=== PATIENT | female | born 1995 | race Two or more races ===

== ENCOUNTER 2018-02-22 03:05 | Emergency (ER) | payer BC, OTHER ==
[2018-02-22] MEDS ORDERED: DEXAMETHASONE SOD PHOS INJ 10 MG/1 ML VIAL IM ONE (03:52)
--- NOTE | 2018-02-22 05:04 | RADIOLOGY REPORT (SQ) ---
Chest 2 view on 02/22/2018 at 4:41 AM CLINICAL INDICATION: Cough, fever COMPARISON: None FINDINGS: The lungs are clear. Cardiac, hilar and mediastinal contours are within normal limits. Pulmonary vascularity is within normal limits. No bony abnormality is noted. IMPRESSION: No active disease.
--- NOTE | 2018-02-22 05:32 | ER Document Report ---
HPI - HPI Patient complains to provider of: sore throat, cough Pain Level: 4 Context: Patient is a 22-year-old female that comes emergency department for chief complaint of sore throat, this started about 5 days ago, she states she was spiking fevers, she states she was seen by urgent care and started on, however she states that even though initially she felt better she has not improved, she has become hoarse, she has a cough, she has congestion, she feels worse. She states that she has multiple episodes of strep per year. Past medical history of asthma, she states she had wheezing which resolved with albuterol. - CONSTITUTIONAL Constitutional: DENIES: Fever, Chills - EENT EENT: REPORTS: Sore Throat. DENIES: Ear Pain, Eye problems - NEURO Neurology: DENIES: Headache, Weakness, Vision blurred, Dizzinesss / Vertigo - CARDIOVASCULAR Cardiovascular: DENIES: Chest pain - RESPIRATORY Respiratory: DENIES: Trouble Breathing, Coughing - GASTROINTESTINAL Gastrointestinal: DENIES: Abdominal Pain, Black / Bloody Stools - URINARY Urinary: DENIES: Dysuria, Urgency, Frequency - MUSCULOSKELETAL Musculoskeletal: DENIES: Extremity pain <JUAN RAMON NELSON - Last Filed: 02/22/18 05:33> - HPI Context: She was started on amoxicillin at the urgent care center. <XI DELONG - Last Filed: 02/22/18 05:43> Past Medical History - General Information source: Patient - Social History Smoking Status: Never Smoker Chew tobacco use (# tins/day): No Frequency of alcohol use: None Drug Abuse: None Lives with: Alone Family History: Reviewed & Not Pertinent Patient has suicidal ideation: No Patient has homicidal ideation: No Pulmonary Medical History: Reports: Hx Asthma Renal/ Medical History: Reports: Hx Ovarian Cysts - PCOS. Denies: Hx Peritoneal Dialysis Past Surgical History: Reports: Hx Oral Surgery - [place] teeth - Immunizations Hx Diphtheria, Pertussis, Tetanus Vaccination: Yes <JUAN RAMON NELSON - Last Filed: 02/22/18 05:33> Vertical Provider Document - CONSTITUTIONAL General Appearance: WD/WN, No Apparent Distress - INFECTION CONTROL TRAVEL OUTSIDE OF THE [place] IN LAST 30 DAYS: No - HEENT HEENT: Atraumatic, Normocephalic. negative: Normal ENT Exam - Tonsillitis with no hypertrophy of 1 more than the other, no rash or exudates, clear airway, normal uvula. Ear examination unremarkable. Some sinus congestion noted, nontender sinuses. - NECK Neck: negative: Normal Inspection - Mild bilateral anterior cervical adenopathy - RESPIRATORY Respiratory: Breath Sounds Normal, No Respiratory Distress. negative: Wheezing - CARDIOVASCULAR Cardiovascular: Regular Rate, Regular Rhythm - GI/ABDOMEN Gastrointestinal: Abdomen Soft, Abdomen Non-Tender. negative: No Organomegaly - BACK Back: Normal Inspection - NEURO Level of Consciousness: Awake, Alert, Appropriate - DERM Integumentary: Warm, Dry, No Rash <JUAN RAMON NELSON - Last Filed: 02/22/18 05:33> Course - Re-evaluation Re-evalutation: Patient has congested cough, some sinus congestion, she does have very large tonsils but no rash or unequal swelling suggesting peritonsillar abscess. She does have laryngitis but no hot potato voice or difficulty handling secretions. She has cervical adenopathy but no evidence of Erick's angina. Strep test had Ed been performed before I saw the patient, this is negative, culture pending. Chest x-ray does not show pneumonia. Discussed with patient. This is probably viral. She is already on amoxicillin. She did not get a rash, no splenomegaly on exam, lower suspicion of mono. Patient treated with dexamethasone, symptom management. Provided with work release. Discussed possibilities, workup, follow-up, return precautions. Patient states understanding and agreement. - Vital Signs Vital signs: Temp Pulse Resp BP Pulse Ox 98.4 F 68 16 135/77 H 98 02/22/18 03:11 02/22/18 03:11 02/22/18 03:11 02/22/18 03:11 02/22/18 03:11 <JUAN RAMON NELSON - Last Filed: 02/22/18 05:33> - Vital Signs Vital signs: Temp Pulse Resp BP Pulse Ox 98.1 F 66 15 116/78 97 02/22/18 05:39 02/22/18 05:39 02/22/18 05:39 02/22/18 05:39 02/22/18 05:39 <XI DELONG E - Last Filed: 02/22/18 05:43> Discharge <JUAN RAMON NELSON - Last Filed: 02/22/18 05:33> <XI DELONG E - Last Filed: 02/22/18 05:43> - Discharge Clinical Impression: Cough, Lymphadenopathy Pharyngitis Qualifiers: Pharyngitis/tonsillitis etiology: unspecified etiology Qualified Code(s): J02.9 - Acute pharyngitis, unspecified Condition: Stable Disposition: HOME, SELF-CARE Additional Instructions: Your strep test is negative. Your chest x-ray is negative. You most likely have a virus that has caused swelling of the tonsils, swelling of the lymph nodes, cough, congestion. Take the medication Tessalon for cough during the day , take the syrup if needed at night. You can take pxkl-jil-sbdmuvd medications such as cetirizine, Flonase, etc. Take ibuprofen for pain. You have been given dexamethasone today for your symptoms as well. Follow-up with primary care. Return if you worsen including difficulty breathing or swallowing, spiking fever, swelling of the neck, or any other concerning symptoms. Prescriptions: Hydrocodone Bit/Homatropine [Hycodan Syrup 5-1.5 mg/5 ml Ud Cup] 5 ml PO Q4HP PRN #120 ml PRN Reason: Benzonatate [Tessalon Perle 100 mg Capsule] 100 mg PO Q8HP PRN #20 cap PRN Reason: Forms: Return to Work
[2018-02-22 05:42] VITALS: BP 116/78
== END 2018-02-22 05:42 | disposition home or self-care (01) ==
LOC: ER 03:05
DX: J02.9 Acute pharyngitis, unspecified (principal); J04.0 Acute laryngitis; R05 Cough; J45.909 Unspecified asthma, uncomplicated; R59.0 Localized enlarged lymph nodes; R09.81 Nasal congestion
CPT/HCPCS: 99283; 96372; 87070; 87880; 71046; J1100

== ENCOUNTER 2019-05-04 13:44 | Outpatient (CLI) | payer BC, MEDICAID ==
[2019-05-04] MEDS ORDERED: RINGERS SOLUTION,LACTATED 1,000 ML IV PRN (13:51)
[2019-05-04 14:42] LABS: APPEARANCE,URINE CLOUDY; BILIRUBIN,URINE NEGATIVE (NEGATIVE); COLOR,URINE YELLOW; GLUCOSE, URINE NEGATIVE (NEGATIVE); KETONES,URINE NEGATIVE (NEGATIVE); LEUKOCYTE ESTERASE,URINE LARGE (NEGATIVE); NITRITE,URINE NEGATIVE (NEGATIVE); PROTEIN,URINE NEGATIVE (NEGATIVE); URINE SPECIFIC GRAVITY 1.016; UROBILINOGEN,URINE NEGATIVE mg/dL (<2.0)
[2019-05-04 14:44] LABS: ABSOLUTE BASOPHILS # (AUTO) 0.1 10^3/uL (0.0-0.2); ABSOLUTE EOSINOPHILS # (AUTO) 0.1 10^3/uL (0.0-0.6); ABSOLUTE LYMPHOCYTES (AUTO) 2.5 10^3/uL (0.5-4.7); ABSOLUTE MONOCYTES (AUTO) 0.7 10^3/uL (0.1-1.4); ABSOLUTE NEUT (AUTO) 9.1 10^3/uL (1.7-8.2); BASOPHILS % (AUTO) 0.5 % (0-2); EOSINOPHILS % (AUTO) 0.6 % (0-6); HEMATOCRIT 32.9 % (36.0-47.0); HEMOGLOBIN 10.8 g/dL (12.0-15.5); LYMPHOCYTES % (AUTO) 20.3 % (13-45); MEAN CORPUSCULAR HEMOGLOBIN 25.4 pg (27.0-33.4); MEAN CORPUSCULAR HGB CONC 32.9 g/dL (32.0-36.0); MEAN CORPUSCULAR VOLUME 77 fl (80-97); MONOCYTES % (AUTO) 5.5 % (3-13); PLATELET COUNT 265 10^3/uL (150-450); RED BLOOD COUNT 4.26 10^6/uL (3.72-5.28); RED CELL DISTRIBUTION WIDTH 13.6 % (11.5-14.0); SEGMENTED NEUTROPHILS % (AUTO) 73.1 % (42-78); TOTAL CELLS COUNTED % (AUTO) 100 %; WHITE BLOOD COUNT 12.4 10^3/uL (4.0-10.5)
[2019-05-04 14:58] LABS: URINE AMPHETAMINES SCREEN NEGATIVE; URINE BARBITURATES SCREEN NEGATIVE; URINE BENZODIAZEPINES SCREEN NEGATIVE; URINE COCAINE SCREEN NEGATIVE; URINE MARIJUANA (THC) SCREEN NEGATIVE; URINE METHADONE SCREEN NEGATIVE; URINE PHENCYCLIDINE SCREEN NEGATIVE
== END 2019-05-04 15:13 | disposition home or self-care (01) ==
LOC: LC 13:44
PROVIDERS: ATTEND Student in an Organized Health Care Education/Training Program
PROC: 4A1HXCZ Monitoring of Products of Conception, Cardiac Rate, External Approach (ICD-10-PCS; principal; 2019-05-04)
DX: Z34.02 Encounter for supervision of normal first pregnancy, second trimester (principal)
CPT/HCPCS: 36415; 80307; 81001; 82962; 85025

== ENCOUNTER 2019-06-14 17:14 | Outpatient (CLI) | payer BC, MEDICAID ==
[2019-06-14 18:11] LABS: BACTERIA (WET MOUNT) 4+ BACTERIA SEEN; EPITHELIALS (WET MOUNT) 3+ EPITHELIALS SEEN; T.VAGINALIS (WET MOUNT) NO TRICHOMONAS SEEN; WBCS (WET MOUNT) 4+ WBCS SEEN; YEAST (WET MOUNT) NO YEAST SEEN
[2019-06-14 18:14] LABS: APPEARANCE,URINE CLEAR; BILIRUBIN,URINE NEGATIVE (NEGATIVE); COLOR,URINE YELLOW; GLUCOSE, URINE NEGATIVE (NEGATIVE); KETONES,URINE NEGATIVE (NEGATIVE); LEUKOCYTE ESTERASE,URINE MODERATE (NEGATIVE); NITRITE,URINE NEGATIVE (NEGATIVE); PROTEIN,URINE NEGATIVE (NEGATIVE); URINE SPECIFIC GRAVITY 1.011; UROBILINOGEN,URINE NEGATIVE mg/dL (<2.0)
[2019-06-14 18:20] LABS: ABSOLUTE BASOPHILS # (AUTO) 0.1 10^3/uL (0.0-0.2); ABSOLUTE EOSINOPHILS # (AUTO) 0.1 10^3/uL (0.0-0.6); ABSOLUTE MONOCYTES (AUTO) 0.7 10^3/uL (0.1-1.4); ABSOLUTE NEUT (AUTO) 11.4 10^3/uL (1.7-8.2); BASOPHILS % (AUTO) 0.5 % (0-2); EOSINOPHILS % (AUTO) 0.4 % (0-6); HEMATOCRIT 32.9 % (36.0-47.0); HEMOGLOBIN 10.8 g/dL (12.0-15.5); LYMPHOCYTES % (AUTO) 19.6 % (13-45); MEAN CORPUSCULAR HEMOGLOBIN 24.8 pg (27.0-33.4); MEAN CORPUSCULAR VOLUME 75 fl (80-97); MONOCYTES % (AUTO) 4.9 % (3-13); PLATELET COUNT 260 10^3/uL (150-450); RED BLOOD COUNT 4.37 10^6/uL (3.72-5.28); SEGMENTED NEUTROPHILS % (AUTO) 74.6 % (42-78); TOTAL CELLS COUNTED % (AUTO) 100 %; WHITE BLOOD COUNT 15.3 10^3/uL (4.0-10.5)
[2019-06-14 18:41] LABS: URINE AMPHETAMINES SCREEN NEGATIVE; URINE BARBITURATES SCREEN NEGATIVE; URINE BENZODIAZEPINES SCREEN NEGATIVE; URINE COCAINE SCREEN NEGATIVE; URINE MARIJUANA (THC) SCREEN NEGATIVE; URINE METHADONE SCREEN NEGATIVE; URINE PHENCYCLIDINE SCREEN NEGATIVE
[2019-06-14 19:36] LABS: CHLAM PCR NOT DETECTED (NOT DETECT)
== END 2019-06-14 19:22 | disposition home or self-care (01) ==
LOC: LC 17:14
PROVIDERS: ATTEND Obstetrics & Gynecology Gynecology
PROC: 4A1HXCZ Monitoring of Products of Conception, Cardiac Rate, External Approach (ICD-10-PCS; principal; 2019-06-14)
DX: O99.89 Other specified diseases and conditions complicating pregnancy, childbirth and the puerperium (principal); N89.8 Other specified noninflammatory disorders of vagina; Z3A.30 30 weeks gestation of pregnancy
CPT/HCPCS: 36415; 80307; 81001; 85025; 87210; 87491; 87591

== ENCOUNTER 2019-06-25 17:51 | Outpatient (CLI) | payer BC, MEDICAID ==
[2019-06-25] MEDS ORDERED: RINGERS SOLUTION,LACTATED 1,000 ML IV PRN (18:42)
[2019-06-25] MEDS ORDERED: RINGERS SOLUTION,LACTATED 300 ML IV ONE (18:42)
[2019-06-25] MEDS ORDERED: ONDANSETRON HCL INJ/PF 4 MG/2 ML SDV IV ONE (18:43)
[2019-06-25] MEDS ORDERED: ONDANSETRON HCL INJ/PF 4 MG/2 ML SDV ONE (18:55)
[2019-06-25 19:03] LABS: BACTERIA (WET MOUNT) 3+ BACTERIA SEEN; RBCS (WET MOUNT) FEW RBCS SEEN; T.VAGINALIS (WET MOUNT) NO TRICHOMONAS SEEN; WBCS (WET MOUNT) 1+ WBCS SEEN; YEAST (WET MOUNT) NO YEAST SEEN
[2019-06-25 19:10] LABS: APPEARANCE,URINE SLIGHTLY-CLOUDY; BILIRUBIN,URINE NEGATIVE (NEGATIVE); COLOR,URINE YELLOW; GLUCOSE, URINE NEGATIVE (NEGATIVE); KETONES,URINE TRACE mg/dL (NEGATIVE); LEUKOCYTE ESTERASE,URINE MODERATE (NEGATIVE); NITRITE,URINE NEGATIVE (NEGATIVE); PROTEIN,URINE NEGATIVE (NEGATIVE); URINE SPECIFIC GRAVITY 1.018; UROBILINOGEN,URINE NEGATIVE mg/dL (<2.0)
[2019-06-25 19:29] LABS: URINE AMPHETAMINES SCREEN NEGATIVE; URINE BARBITURATES SCREEN NEGATIVE; URINE BENZODIAZEPINES SCREEN NEGATIVE; URINE COCAINE SCREEN NEGATIVE; URINE MARIJUANA (THC) SCREEN NEGATIVE; URINE METHADONE SCREEN NEGATIVE; URINE PHENCYCLIDINE SCREEN NEGATIVE
--- NOTE | 2019-06-25 20:23 | RADIOLOGY REPORT (SQ) ---
EXAM DESCRIPTION: [facility]Lex: US LIMITED CLINICAL HISTORY: 24 years Female; r/o PTL TECHNIQUE: Transabdominal obstetrical ultrasound was performed. COMPARISON: None. FINDINGS: Number of fetuses: Single position: Vertex BPD: 8.34 cm, 33 weeks 4 days HC: 29.64 cm, 32 weeks 5 days AC: 29.55 cm, 33 weeks 4 days FL: 6.77 cm, 34 weeks 6 days EFW: 2282 g, 64% HR: 118 bpm Anatomy: Grossly normal on this limited survey exam Amniotic fluid: LVP 3.2 cm. Volume is subjectively decreased. Cervix: 3.5 cm long, closed Placenta: Posterior. No previa. IMPRESSION: 1. Single viable IUP 2. EGA 33 weeks 5 days, EDC 08/08/2019 3. Oligohydramnios
--- NOTE | 2019-06-25 20:29 | Non Stress Test Report ---
Non Stress Test Datetime Report Generated by CPN: 06/25/2019 20:29 DEMOGRAPHIC EGA NST: 32.2 INDICATION Indication for Study (NST) Other: Labor Check VITAL SIGNS Temperature - NST: 98.1 Pulse - NST: 80 RESP - NST: 15 NBPSYS NST: 134 NBPDIA NST: 60 MONITORING Monitor Explained: Monitor Explained; Test Explained; Patient Verbalized Understanding Time on Monitor: 06/25/2019 18:11 Time off Monitor: 06/25/2019 19:00 NST Duration: 49 NST INTERVENTIONS NST Interventions: PO Hydration Physician Notified NST: Dr Denis BABY A: [id number] BABY A Movement : Present Contraction Frequency : irritability FHR Baseline : 140 Accelerations : 15X15 Decelerations : None Variability : Moderate 6-25bpm NST Review: Meets Criteria for Reactive NST NST Review and Verified By : Gera Casey RN NSFamilia Results: Reactive NST REPORT Report Trigger: Send Report
[2019-06-25 20:32] LABS: CHLAM PCR NOT DETECTED (NOT DETECT)
== END 2019-06-25 20:34 | disposition home or self-care (01) ==
LOC: LC 17:51
PROVIDERS: ATTEND Obstetrics & Gynecology
PROC: 4A1HXCZ Monitoring of Products of Conception, Cardiac Rate, External Approach (ICD-10-PCS; principal; 2019-06-25)
DX: O47.03 False labor before 37 completed weeks of gestation, third trimester (principal); Z3A.32 32 weeks gestation of pregnancy
CPT/HCPCS: 59025; 87210; 81001; 80307; 87491; 87591; 76815; J2405

== ENCOUNTER 2019-07-26 07:16 | Inpatient (IN) | payer BC, MEDICAID ==
[2019-07-26 08:19] LABS: APPEARANCE,URINE CLOUDY; BILIRUBIN,URINE NEGATIVE (NEGATIVE); CALCIUM OXALATE CRYSTALS,URINE FEW /HPF; COLOR,URINE YELLOW; GLUCOSE, URINE NEGATIVE (NEGATIVE); KETONES,URINE NEGATIVE (NEGATIVE); LEUKOCYTE ESTERASE,URINE TRACE (NEGATIVE); NITRITE,URINE NEGATIVE (NEGATIVE); PROTEIN,URINE 30 mg/dL (NEGATIVE); URINE SPECIFIC GRAVITY 1.019; UROBILINOGEN,URINE NEGATIVE mg/dL (<2.0)
[2019-07-26] MEDS ORDERED: OXYTOCIN 10 UNIT/ML VIAL ONE (08:31)
[2019-07-26] MEDS ORDERED: MISOPROSTOL 0.2 MG TABLET ONE (08:31)
[2019-07-26] MEDS ORDERED: LIDOCAINE 1% INJ-PF (10 MG/ML) 30 ML SDV ONE (08:31)
[2019-07-26] MEDS ORDERED: OXYTOCIN/NORMAL SALINE 20 UNIT/1,000 ML RTUINJ ONE (08:32)
[2019-07-26] MEDS ORDERED: RINGERS SOLUTION,LACTATED 1,000 ML IV ONE (08:41)
[2019-07-26 08:55] LABS: URINE AMPHETAMINES SCREEN NEGATIVE; URINE BARBITURATES SCREEN NEGATIVE; URINE BENZODIAZEPINES SCREEN NEGATIVE; URINE COCAINE SCREEN NEGATIVE; URINE MARIJUANA (THC) SCREEN NEGATIVE; URINE METHADONE SCREEN NEGATIVE; URINE PHENCYCLIDINE SCREEN NEGATIVE
[2019-07-26] MEDS ORDERED: FENTANYL/BUPIVACAINE/NS/PF 300 MCG/150 ML RTUINJ EPI ONE (09:06)
[2019-07-26] MEDS ORDERED: BUPIVACAINE HCL 0.25 % INJ/PF (2.5 MG/1 ML) 30 ML VIAL ONE (09:06)
[2019-07-26] MEDS ORDERED: EPHEDRINE SULFATE INJ 50 MG/1 ML AMPULE ONE (09:06)
[2019-07-26] MEDS ORDERED: ALBUTEROL SULFATE HFA (90 MCG/PUFF) 200 PUFF/8.5 GM MDI IH PRN (09:07)
[2019-07-26 09:14] LABS: ABSOLUTE LYMPHOCYTES (AUTO) 2.3 10^3/uL (0.5-4.7); ABSOLUTE MONOCYTES (AUTO) 0.7 10^3/uL (0.1-1.4); ABSOLUTE NEUT (AUTO) 10.2 10^3/uL (1.7-8.2); BASOPHILS % (AUTO) 0.4 % (0-2); EOSINOPHILS % (AUTO) 0.3 % (0-6); HEMATOCRIT 34.4 % (36.0-47.0); HEMOGLOBIN 11.4 g/dL (12.0-15.5); LYMPHOCYTES % (AUTO) 17.5 % (13-45); MEAN CORPUSCULAR HEMOGLOBIN 23.7 pg (27.0-33.4); MEAN CORPUSCULAR VOLUME 72 fl (80-97); MONOCYTES % (AUTO) 5.1 % (3-13); PLATELET COUNT 290 10^3/uL (150-450); RED BLOOD COUNT 4.79 10^6/uL (3.72-5.28); RED CELL DISTRIBUTION WIDTH 14.4 % (11.5-14.0); SEGMENTED NEUTROPHILS % (AUTO) 76.7 % (42-78); TOTAL CELLS COUNTED % (AUTO) 100 %; WHITE BLOOD COUNT 13.3 10^3/uL (4.0-10.5)
--- NOTE | 2019-07-26 09:16 | Admission Physical ---
Datetime Report Generated by CPN: 07/26/2019 09:16 CURRENT ADMISSION Chief Complaint: Suspected Ruptured Membranes Chief Complaint Other: + actim prom Indication for Induction: Not Applicable Admit Impression : , Intrauterine Admit Plan: Admit to Unit; Initiate Labor Protocol ALLERGIES Medication Allergies: No Medication Allergies: No Known Allergies (07/26/2019) Latex: No Latex Allergies Food Allergies: None Environmental Allergies: None OBSTETRICAL HISTORY EDC: 08/18/2019 00:00 : 1 Para: 0 Term: 0 : 0 SAB: 0 IAB: 0 Ectopic: 0 Livin Cesareans: 0 VBACs: 0 Multiple Births: 0 Gestational Diabetes: No Rh Sensitization: No Incompetent Cervix: No SONIDO: No Infertility: No ART Treatment: No Uterine Anomaly: No IUGR: No Hx Previous C/S: No Macrosomia: No Hx Loss/Stillborn: No PIH: No Hx : No Placenta Previa/Abruption: No Depression/PP Depression: No PTL/PROM: No Post Hemorrhage: No Current Procedures: Ultrasound Obstetrical History Comments: G1 - anemia SEE RECORDS Alcohol: No Marijuana : No Cocaine: No Other Illicit Drugs: No Cigarettes: Never Smoker. [id number] MEDICAL HISTORY Diabetes: No Blood Transfusion: No Pulmonary Disease (Asthma, TB): Yes Breast Disease: No Hypertension: No Back End Engineer Surgery: No Heart Disease: No Hosp/Surgery: Yes Autoimmune Disorder: No Anesthetic Complications: No Kidney Disease: No Abnormal Pap Smear: Yes Neuro/Epilepsy: No Psychiatric Disorders: Yes Other Medical Diseases: No Hepatitis/Liver Disease: No Significant Family History: No Varicosities/Phlebitis: No Trauma/Violence : No Thyroid Dysfunction: No Medical History Comments: [place] tooth extraction, Asthma - albuterol inhaler PRN (rarely uses), Anxiety/Depression (no current thoughts of harming self), suicidal ideations four years INFECTIOUS HISTORY Gonorrhea: No Genital Herpes: Yes Chlamydia: No Tuberculosis: No Syphilis: No Hepatitis: No HIV/AIDS Exposure: No Rash or Viral Illness: No HPV: No Infectious History Comments: Valtrex daily since 32 weeks PHYSICAL EXAM General: Normal HEENT: Normal Neurologic: Normal Thyroid: Deferred Heart: Normal Lungs: Normal Breast: Deferred Back: Normal Abdomen: Normal Genitourinary Exam: Normal Extremities: Normal DTRs: Deferred Pelvic Type: Adequate Vital Signs: Reviewed; Within Normal Limits VAGINAL EXAM Dilatation: 3 Effacement: 90 Station: -2 Contraction Comments: q 2-4 mins MEMBRANES Pooling: Positive Membranes: Ruptured Amniotic Fluid Color: Clear FETUS A EGA: 36.5 FHR- Baseline: 140 Accelerations: 10X10 Decelerations: None FHR Category: Category I Estimated Weight (gm): 3200 Presentation: Vertex Admit Comment: at 36w5d SROM since 0640 this morning. hx anxiety, hx asthma. GBS neg. P:admit as inpt for labor, routine labor care, anticipate PLANS FOR LABOR AND DELIVERY Labor and Delivery: None Pain Management: Epidural Feeding Preference: Breast Benefit of Breast Feed Discussed: Yes Circumcision: N/A INFORMED CONSENT Assignment: Corrina Denis MD Signature: with User ID: [email or web address] : with User ID: [email or web address]
[2019-07-26] MEDS: RINGERS SOLUTION,LACTATED 1,000 ML IV PRN ×2 (10:06→12:41)
[2019-07-26] MEDS ORDERED: OXYTOCIN/NORMAL SALINE 20 UNIT/1,000 ML RTUINJ IV PRN ×2 (14:49→23:55)
[2019-07-26] MEDS ORDERED: PENICILLIN G POTASSIUM 5,000,000 UNIT in DEXTROSE 5%-WATER 100 ML IV ONE (14:58)
[2019-07-26] MEDS ORDERED: PENICILLIN G-K 5 MILLION UNIT VIAL ONE ×2 (15:24→19:02)
[2019-07-26] MEDS: PENICILLIN G POTASSIUM 2,500,000 UNIT in DEXTROSE 5%-WATER 50 ML IV SCH (19:33)
[2019-07-26] MEDS ORDERED: PROMETHAZINE HCL 25 MG TABLET PO PRN (23:55)
[2019-07-26] MEDS ORDERED: PROMETHAZINE HCL INJ 25 MG/1 ML VIAL IV PRN (23:55)
[2019-07-26] MEDS ORDERED: DIPH/PERTUSS(ACELL)/TETANUS VAC/PF 0.5 ML SYR (>=10YO) IM PRN (23:55)
[2019-07-26] MEDS ORDERED: BENZOCAINE/MENTHOL AEROSOL SPRAY 56 ML TOP PRN (23:55)
[2019-07-26] MEDS ORDERED: ACETAMINOPHEN WITH CODEINE #3 TABLET PO PRN ×2 (23:55)
[2019-07-26] MEDS ORDERED: ZOLPIDEM TARTRATE 5 MG TABLET PO PRN (23:55)
[2019-07-26] MEDS ORDERED: MEASLES,MUMPS&RUBELLA VACC/PF 0.5 ML VIAL SUBCUT PRN (23:55)
[2019-07-26] MEDS ORDERED: DIBUCAINE 1% OINTMENT 28 GM TP PRN (23:55)
[2019-07-26] MEDS ORDERED: PSEUDOEPHEDRINE HCL 30 MG TABLET PO PRN (23:55)
[2019-07-26] MEDS ORDERED: ACETAMINOPHEN 650 MG SUPP.RECT PR PRN (23:55)
[2019-07-26] MEDS ORDERED: DIPHENHYDRAMINE HCL 25 MG CAPSULE PO PRN (23:55)
[2019-07-26] MEDS ORDERED: GLYCERIN/WITCH HAZEL LEAF 1 EACH MED..WIPE TP PRN (23:55)
[2019-07-26] MEDS ORDERED: ACETAMINOPHEN 325 MG TABLET PO PRN (23:55)
[2019-07-26] MEDS ORDERED: IBUPROFEN 800 MG TABLET PO PRN (23:55)
[2019-07-26] MEDS ORDERED: NA PHOS,M-B/NA PHOS,DI-BA (ADULT) 133 ML ENEMA PR PRN (23:55)
[2019-07-26] MEDS ORDERED: PROMETHAZINE HCL 25 MG SUPP.RECT PR PRN (23:55)
[2019-07-26] MEDS ORDERED: MAGNESIUM HYDROXIDE SUSP 30 ML UDCUP PO PRN ×2 (23:55)
[2019-07-27] MEDS ORDERED: LIDOCAINE 2% INJ-PF (20 MG/ML) 10 ML AMPUL ONE
[2019-07-27] MEDS ORDERED: EPHEDRINE SULFATE INJ 50 MG/1 ML AMPULE ONE (00:11)
[2019-07-27] MEDS ORDERED: FAMOTIDINE 20 MG TABLET PO ONE (00:15)
[2019-07-27] MEDS: IBUPROFEN 800 MG TABLET PO SCH ×3 (05:46→21:27)
--- NOTE | 2019-07-27 05:52 | Delivery Summary ---
Del Sum A-C Datetime Report Generated by CPN: 07/27/2019 05:51 DELIVERY PERSONNEL DELIVERY PERSONNEL: [id number] Delivery Doctor:: Corrina Denis MD Labor and Delivery Nurse:: Tangela Pierce RNimposer Nurse:: Jude Mcknight RN Nursery Nurse:: Slime Hopper RN [place] Door Assembler/SENIOR EXECUTIVE COMPENSATION ANALYST: Patricia Ross, ST MATERNAL INFORMATION Delivery Anesthesia: Epidural Medications After Delivery: Pitocin Drip 20 Units/1000ml NSS Estimated Blood Loss (ml): 250 Delivery QBL: 250 Delivery QBL Comment: 250 delivery 48 recovery 298 total Maternal Complications: None LABOR SUMMARY EDC: 08/18/2019 00:00 No. Babies in Womb: 1 Attempted: No Labor Anesthesia: Epidural LABOR INFORMATION Reason for Induction: Not Applicable Onset of Labor: 07/26/2019 11:45 Complete Dilatation: 07/26/2019 22:53 Oxytocin: Augmentation Group B Beta Strep: Negative Antibiotics # of Doses: 2 Antibiotics Time of Last Dose: 1930 Name of Antibiotic Given: penicillin Steroids Given: None Reason Steroids Not Administered: Not Applicable MEMBRANES Membranes Rupture Method: Spontaneous Rupture of Membranes: 07/26/2019 06:40 Length of Rupture (hr): 16.83 Amniotic Fluid Color: Clear Amniotic Fluid Amount: Small STAGES OF LABOR Stage 1 hr: 11 Stage 1 min: 8 Stage 2 hr: 0 Stage 2 min: 37 Stage 3 hr: 0 Stage 3 min: 52 Total Time in Labor hr: 12 Total Time in Labor min: 37 VAGINAL DELIVERY Episiotomy: None Laceration #1: None Laceration Extension #1: N/A Laceration #2: None Laceration Extension #2: N/A Laceration #3: None Laceration Extension #3: N/A Laceration Repair: Not Applicable Laceration Repair Note: The placenta was removed manually after redosing the epidural. No retained placenta noted with repeat exam. Sponge Count Correct: Vaginal Sweep Performed Sharps Count Correct: Yes CSECTION DELIVERY Primary Indication: N/A Secondary Indication: N/A CSection Urgency: N/A CSection Incidence: N/A Labor: N/A Elective: N/A CSection Incision: N/A BABY A INFORMATION Infant Delivery Date/Time: 07/26/2019 23:30 Method of Delivery: Vaginal Born in Route : No : N/A Forceps: N/A Vacuum Extraction: N/A Shoulder Dystocia : No PRESENTATION/POSITION BABY A Presentation: Cephalic Cephalic Presentation: Vertex Vertex Position: OA Breech Presentation: N/A PLACENTA INFORMATION BABY A Placenta Delivery Time : 07/27/2019 00:22 Placenta Method of Delivery: Manual Removal Placenta Status: Delivered SCORES BABY A Heart Rate 1 min: >100 bpm Resp Effort 1 min: Good Cry Reflex Irritability 1 min: Cough or Sneeze or Pulls Away Muscle Tone 1 min: Active Motion Color 1 min: Blue/Pale Resuscitation Effort 1 min: Tactile Stimulation SCORE 1 MIN: 8 Heart Rate 5 min: >100 bpm Resp Effort 5 min: Good Cry Reflex Irritability 5 min: Cough or Sneeze or Pulls Away Muscle Tone 5 min: Active Motion Color 5 min: Body [place], Extremities Blue Resuscitation Effort 5 min: N/A SCORE 5 MIN: 9 INFORMATION BABY A Gestational Age at Delivery: 36.5 Gestational Status: Late - 34- 36.6 Weeks Infant Outcome : Liveborn Infant Condition : Stable Infant Sex: Female IDENTIFICATION BABY A Infant Verification Date/Time: 07/26/2019 23:47 ID Band Number: [id number] Mother's Name Verified: Yes Infant RN Verifying Infant: Perla Mcknight/LBj MANAGER [employer] WEIGHT/LENGTH BABY A Infant Birthweight (gm): 2838 Infant Weight (lb): 6 Weight (oz): 4 Length (in): 19.50 Infant Length (cm): 49.53 CORD INFORMATION BABY A No. Cord Vessels: 3 Nuchal Cord : N/A Cord Blood Taken: Yes-For Storage (Mom's Blood type +) Infant Suction: None ASSESSMENT BABY A Infant Complications: Other Complications- Other: Terminal Meconium Physical Findings at Delivery: Other Physical Findings- Other: see Nursery assessment Infant Respirations: Appears Normal Skin to Skin: Yes Stitch Separator/ALS Called : No Infant Care By: Daniel Field RN Transferred To: Remains with Mother BABY B INFORMATION : N/A SIGNATURES Signature: with User ID: [email or web address] : I was personally available for consultation and serving as supervising physician for the MLP.
[2019-07-27 08:18] LABS: HEMATOCRIT 28.7 % (36.0-47.0); MEAN CORPUSCULAR HEMOGLOBIN 23.1 pg (27.0-33.4); MEAN CORPUSCULAR HGB CONC 31.7 g/dL (32.0-36.0); MEAN CORPUSCULAR VOLUME 73 fl (80-97); PLATELET COUNT 270 10^3/uL (150-450); RED BLOOD COUNT 3.93 10^6/uL (3.72-5.28); RED CELL DISTRIBUTION WIDTH 14.8 % (11.5-14.0); WHITE BLOOD COUNT 22.1 10^3/uL (4.0-10.5)
[2019-07-27 08:22] LABS: HEMOGLOBIN 9.1 g/dL (12.0-15.5)
[2019-07-27] MEDS: DOCUSATE SODIUM 100 MG CAPSULE PO SCH ×2 (09:15→18:30)
[2019-07-27] MEDS: FAMOTIDINE 20 MG TABLET PO SCH ×2 (09:15→21:26)
[2019-07-27] MEDS: PRENATAL VITAMIN W DHA CAPSULE PO SCH (09:15)
[2019-07-27] MEDS: FERROUS SULFATE 325 MG TABLET PO SCH ×2 (09:15→18:30)
[2019-07-27] MEDS: SENNOSIDES/DOCUSATE 8.6-50 MG 1 EACH TABLET PO SCH (09:16)
--- NOTE | 2019-07-27 15:09 | PDOC PROGRESS REPORT ---
Subjective-OB Progress Note for:: 07/27/19 Subjective: reports bleeding slowing, pain controlled with current meds. denies needs Physical Exam (OB) Vital Signs: Temp Pulse Resp BP Pulse Ox 97.5 F 76 18 127/64 H 98 07/27/19 07:35 07/27/19 07:35 07/27/19 07:35 07/27/19 07:35 07/27/19 07:35 Intake & Output 07/26/19 07/27/19 07/28/19 06:59 06:59 06:59 Intake Total 323 Balance 323 Weight 116 kg - Abdomen Description: Soft Hernia Present: No Fundal Description: Firm, Midline Fundal Height: u/u - u/2 - Abdominal Distension: No distension Tenderness: Nontender - Extremities Lower extremities: Fatoumata's sign - neg Calf: Normal, Nontender Objective-Diagnostic Laboratory: 07/27/19 07:40 07/27/19 07:40 WBC 22.1 H RBC 3.93 Hgb 9.1 L D Hct 28.7 L MCV 73 L MCH 23.1 L MCHC 31.7 L RDW 14.8 H Plt Count 270 Assessment and Plan(PN) - Assessment and Plan (1) delivery Is this a current diagnosis for this admission?: Yes (2) Asthma Qualifiers: Asthma severity: mild Is this a current diagnosis for this admission?: Yes (3) labor in third trimester Qualifiers: labor delivery status: with delivery in third trimester Is this a current diagnosis for this admission?: Yes - Time Spent with Patient Time with patient: Less than 15 minutes Medications reviewed and adjusted accordingly: Yes - Disposition Anticipated Discharge: Home Within: within 24 hours
[2019-07-27] MEDS: PENICILLIN G POTASSIUM 2,500,000 UNIT in DEXTROSE 5%-WATER 50 ML IV SCH (19:45)
[2019-07-28] MEDS: IBUPROFEN 800 MG TABLET PO SCH ×2 (05:48→14:22)
[2019-07-28] MEDS: DOCUSATE SODIUM 100 MG CAPSULE PO SCH (09:38)
[2019-07-28] MEDS: PRENATAL VITAMIN W DHA CAPSULE PO SCH (09:38)
[2019-07-28] MEDS: FAMOTIDINE 20 MG TABLET PO SCH (09:38)
[2019-07-28] MEDS: FERROUS SULFATE 325 MG TABLET PO SCH (09:38)
[2019-07-28] MEDS: SENNOSIDES/DOCUSATE 8.6-50 MG 1 EACH TABLET PO SCH (09:38)
--- NOTE | 2019-07-28 12:49 | PDOC DISCHARGE SUMMARY ---
Impression - Admit/DC Date/PCP Admission Date/Primary Care Provider: 07/26/19 08:29 RENA RICHEY MD Discharge Date: 07/28/19 - Discharge Diagnosis (1) delivery Is this a current diagnosis for this admission?: Yes (2) Asthma Is this a current diagnosis for this admission?: Yes (3) labor in third trimester Is this a current diagnosis for this admission?: Yes - Additional Information Discharge Diet: Regular Discharge Activity: Balance Activity w/Rest, Pelvic Rest Referrals: RENA RICHEY MD [Primary Care Provider] - Prescriptions: Ibuprofen [Motrin 800 mg Tablet] 800 mg PO Q8HP PRN #60 tablet PRN Reason: Home Medications: Vits96/Iron Fum/Folic [ Tablet] 1 tab PO DAILY 06/14/19 Albuterol Sulfate [Proair HFA Inhalation Aerosol 8.5 gm MDI] 2 puff IH Q4HP PRN hfa.aer.ad 07/28/19 Ibuprofen [Motrin 800 mg Tablet] 800 mg PO Q8HP PRN #60 tablet 07/28/19 HPI Gestational Age: 36+5 Reason(s) for Admission: Onset of Labor Procedures: NST Intrapartum Procedure(s): Spontaneous Vaginal Delivery Results Laboratory Results: WBC 22.1 10^3/uL (4.0-10.5) H 07/27/19 07:40 RBC 3.93 10^6/uL (3.72-5.28) 07/27/19 07:40 Hgb 9.1 g/dL (12.0-15.5) L D 07/27/19 07:40 Hct 28.7 % (36.0-47.0) L 07/27/19 07:40 MCV 73 fl (80-97) L 07/27/19 07:40 MCH 23.1 pg (27.0-33.4) L 07/27/19 07:40 MCHC 31.7 g/dL (32.0-36.0) L 07/27/19 07:40 RDW 14.8 % (11.5-14.0) H 07/27/19 07:40 Plt Count 270 10^3/uL (150-450) 07/27/19 07:40 Lymph % (Auto) 17.5 % (13-45) 07/26/19 09:04 [place] % (Auto) 5.1 % (3-13) 07/26/19 09:04 Eos % (Auto) 0.3 % (0-6) 07/26/19 09:04 Baso % (Auto) 0.4 % (0-2) 07/26/19 09:04 Absolute Neuts (auto) 10.2 10^3/uL (1.7-8.2) H 07/26/19 09:04 Absolute Lymphs (auto) 2.3 10^3/uL (0.5-4.7) 07/26/19 09:04 Absolute Monos (auto) 0.7 10^3/uL (0.1-1.4) 07/26/19 09:04 Absolute Eos (auto) 0.0 10^3/uL (0.0-0.6) 07/26/19 09:04 Absolute Basos (auto) 0.0 10^3/uL (0.0-0.2) 07/26/19 09:04 Seg Neutrophils % 76.7 % (42-78) 07/26/19 09:04 Urine Color YELLOW 07/26/19 07:49 Urine Appearance CLOUDY 07/26/19 07:49 Urine pH 6.0 (5.0-9.0) 07/26/19 07:49 Ur Specific [place] 1.019 07/26/19 07:49 Urine Protein 30 mg/dL (NEGATIVE) H 07/26/19 07:49 Urine Glucose (UA) NEGATIVE mg/dL (NEGATIVE) 07/26/19 07:49 Urine Ketones NEGATIVE mg/dL (NEGATIVE) 07/26/19 07:49 Urine Blood LARGE (NEGATIVE) H 07/26/19 07:49 Urine Nitrite NEGATIVE (NEGATIVE) 07/26/19 07:49 Urine Bilirubin NEGATIVE (NEGATIVE) 07/26/19 07:49 Urine Urobilinogen NEGATIVE mg/dL (<2.0) 07/26/19 07:49 Ur Leukocyte Esterase TRACE (NEGATIVE) H 07/26/19 07:49 Urine WBC (Auto) 14 /HPF 07/26/19 07:49 Urine RBC (Auto) >182 /HPF 07/26/19 07:49 Urine Bacteria (Auto) TRACE /HPF 07/26/19 07:49 Squamous Epi Cells Auto 21 /HPF 07/26/19 07:49 Calcium Oxalate Cr Auto FEW /HPF 07/26/19 07:49 Urine Mucus (Auto) RARE /LPF 07/26/19 07:49 Urine Ascorbic Acid NEGATIVE (NEGATIVE) 07/26/19 07:49 Membranes Rupture POSITIVE (NEGATIVE) H 07/26/19 07:49 Urine Opiates Screen NEGATIVE 07/26/19 07:49 Urine Methadone Screen NEGATIVE 07/26/19 07:49 Ur Barbiturates Screen NEGATIVE 07/26/19 07:49 Ur Phencyclidine Scrn NEGATIVE 07/26/19 07:49 Ur Amphetamines Screen NEGATIVE 07/26/19 07:49 U Benzodiazepines Scrn NEGATIVE 07/26/19 07:49 Urine Cocaine Screen NEGATIVE 07/26/19 07:49 U Marijuana (THC) Screen NEGATIVE 07/26/19 07:49 RPR NONREACTIVE (NONREACTIVE) 07/26/19 09:04 Blood Type A POSITIVE 07/26/19 09:04 Antibody Screen NEGATIVE 07/26/19 09:04 Plan Plan of Treatment: follow up in 4 weeks at [facility] for post check
[2019-07-28 12:56] VITALS: BP 135/57
== END 2019-07-28 17:15 | disposition home or self-care (01) | DRG 806 ==
LOC: LC 07:16 → LR 08:29 → 2S 07-27 04:21
PROVIDERS: ADMIT Obstetrics & Gynecology; ATTEND Obstetrics & Gynecology
PROC: 10E0XZZ Delivery of Products of Conception, External Approach (ICD-10-PCS; principal; 2019-07-26)
DX: O60.14X0 Preterm labor third trimester with preterm delivery third trimester, not applicable or unspecified (principal); O98.32 Other infections with a predominantly sexual mode of transmission complicating childbirth; Z37.0 Single live birth; A60.00 Herpesviral infection of urogenital system, unspecified; O77.0 Labor and delivery complicated by meconium in amniotic fluid; J45.909 Unspecified asthma, uncomplicated; O99.52 Diseases of the respiratory system complicating childbirth; O99.344 Other mental disorders complicating childbirth; F41.9 Anxiety disorder, unspecified; F32.9 Major depressive disorder, single episode, unspecified; Z79.899 Other long term (current) drug therapy; Z3A.36 36 weeks gestation of pregnancy; Z79.51 Long term (current) use of inhaled steroids
CPT/HCPCS: 36415; 80307; 81001; 84112; 85025; 85027; 86592; 86850; 86900; 86901; J2540; J2590; J3010; J3490